=== PATIENT | male | born 1950 | race Hispanic/Latino ===

== ENCOUNTER 2017-05-08 19:24 | Emergency (ER) | payer MEDICARE ==
[2017-05-08 20:18] LABS: Basophils % (Auto) 0.4 % (0.0-1.8); Eosinophils % (Auto) 0.1 % (0.0-4.3); Hematocrit 45.5 % (35.5-45.6); Hemoglobin 15.2 gm/dl (11.8-15.2); Mean Corpuscular HGB Conc 33 % (32-34); Mean Corpuscular Hemoglobin 30 pg (28-32); Mean Corpuscular Volume 91 fl (84-94); Platelet Count 183 K/mm3 (140-440); Red Blood Count 5.01 M/mm3 (3.65-5.03); Red Cell Distribution Width 14.2 % (13.2-15.2); White Blood Count 13.4 K/mm3 (4.5-11.0)
[2017-05-08 20:28] LABS: INR 0.96 (0.87-1.13)
[2017-05-08 20:39] LABS: Alanine Aminotransferase 20 units/L (7-56); Albumin 4.6 g/dL (3.9-5); Albumin/Globulin Ratio 1.3 %; Alkaline Phosphatase 49 units/L (35-129); Anion Gap 20 mmol/L; BUN/Creatinine Ratio 16; Blood Urea Nitrogen 13 mg/dL (9-20); Calcium 9.7 mg/dL (8.4-10.2); Carbon Dioxide 27 mmol/L (22-30); Chloride 96.4 mmol/L (98-107); Glucose 93 mg/dL (75-100); Lipase 13 units/L (13-60); Potassium 4.1 mmol/L (3.6-5.0); Sodium 139 mmol/L (137-145); Total Protein 8.2 g/dL (6.3-8.2)
[2017-05-08] MEDS ORDERED: ZOFRAN IV ONE (21:55)
[2017-05-08] MEDS ORDERED: NACL 0.9% 1000 ML 2,000 ML IV ONE (21:55)
[2017-05-08] MEDS ORDERED: SUBLIMAZE IV ONE (21:56)
[2017-05-08] MEDS ORDERED: TYLENOL ONE (22:16)
[2017-05-08] MEDS ORDERED: TYLENOL PO ONE (22:16)
[2017-05-08] MEDS ORDERED: BENADRYL IV ONE (23:08)
--- NOTE | 2017-05-08 23:26 | Cat Scan Report ---
FINAL REPORT PROCEDURE: CT ABDOMEN PELVIS WO CON TECHNIQUE: Computerized axial tomography of the abdomen and pelvis was performed without intravenous contrast. This study is performed without intravascular contrast material and its sensitivity for abdominal and pelvic pathology, including neoplasms, inflammation, abscess, free fluid, thrombosis, arterial dissection and infarction, is reduced compared with a contrast enhanced study. HISTORY: Rt Lt lateral abd/flank pain, hx kidney stones COMPARISON: No prior studies are available for comparison. FINDINGS: Lower Lung rich: Small amount of dependent atelectasis is visualized. Calcifications are visualized in the coronary arteries indicating atherosclerotic disease. Upper Abdomen: The liver, the gallbladder, the adrenal glands, the pancreas and spleen are unremarkable. Kidneys, Ureters and Urinary bladder: There is no hydronephrosis. Nonobstructing calculi are visualized in the lower 3rd of the right kidney. The largest measures 2.3 x 1.2 centimeter. There is also a nonobstructing calculus in the midportion of the right kidney measuring 8.5 x 9.6 millimeters. Renal cortical cysts appear to be present on the right. A benign appearing thin calcification is visualized in the largest cyst on the right measuring 5.9 centimeters. There is indeterminate 2.9 x 2.5 millimeter nodular density projecting over the lower half of the renal pelvis of the right kidney. This may represent a peripelvic cyst although has lobulated borders and appears more dense than the adjacent cyst. I cannot exclude a solid nodule. Small renal cortical cysts appears to be present in the upper 3rd of the left kidney. Nonobstructing 3 millimeter calculus also visualized in the upper 3rd of the left kidney. Ureters are not distended. No ureteral calculi are visualized. Several bladder calculi are visualized. The largest measures 8.5 millimeters. Retroperitoneum: Atherosclerotic changes are seen in the abdominal aorta. No aneurysm is visualized. Nonspecific subcentimeter lymph nodes are seen in the retroperitoneum. No pathologically enlarged lymph nodes are identified. Bowel: No focal bowel loop abnormalities are seen. No evidence of bowel obstruction ascites or free intraperitoneal gas. The appendix is not clearly identified. Reproductive organs: There is nonspecific diffuse prostate enlargement. Other: No acute bony abnormalities are identified. IMPRESSION: Several urinary bladder calculi are visualized. Nonobstructing renal calculi visualized bilaterally greater on the right than the left. No hydronephrosis. Renal cortical cysts appear to be present bilaterally. There is atypical appearing slightly lobulated nodular density inferior aspect renal pelvis. This could represent a dense peripelvic cyst. A solid nodule cannot be excluded. Recommend renal ultrasound for further evaluation of the kidneys. There is nonspecific marked diffuse prostate enlargement..
[2017-05-08 23:33] LABS: Bacteria,Urine 1+ /HPF (Negative); Bilirubin,Urine NEG (Negative); Blood,Urine LG (Negative); Ketones,Urine NEG (Negative); Leukocyte Esterase,Urine LG (Negative); Mucus,Urine FEW /HPF; Nitrite,Urine NEG (Negative); Sperm,Urine 1+ /HPF (NP)
[2017-05-09] MEDS ORDERED: ZOSYN/NS 3.375GM/50ML 3.375 GM/50 ML BAG IV SCH
[2017-05-09] MEDS ORDERED: MOTRIN PO ONE (01:36)
--- NOTE | 2017-05-09 01:39 | Emergency Department Report ---
HPI - General Chief Complaint: Abdominal Pain Time Seen by Provider: 05/08/17 21:53 - HPI HPI: The patient is a 67 yo male whom presents for evaluation of abdominal pain. The patient has a history of recurrent renal stones and enlarged prostate. Patient complains of bilateral generalized abdominal pain since this morning, > 12 hours [employer], 10/10 in severity, cramping and sharp in quality, and exacerbated with attempts to urinate. He also reports associated dysuria, nausea, vomiting , decreased appetite, and decreased urinary flow. The patient denies headache, neck pain or stiffness, cough, chest pain, dyspnea, hematemesis, diarrhea, blood in the stool, testicular pain or swelling, rectal pain, or drainage or discharge from the rectum or penis. ED Past Medical Hx - Past Medical History Previous Medical History?: Yes Hx Hypertension: Yes Additional medical history: CAD, Enlarged Prostate, Central Tremors - Surgical History Past Surgical History?: Yes Hx Coronary Stent: Yes Additional Surgical History: Spine Surgery with Neuro deficit lower ext. Tonsils, Lrft Knee x2 - Social History Smoking Status: Never Smoker Substance Use Type: None - Medications Home Medications: Home Medications Medication Instructions Recorded Confirmed Last Taken Type Aspirin EC [Aspirin Enteric Coated 81 mg PO QDAY 05/08/17 05/08/17 05/07/17 History TAB] Cholecalciferol (Vitamin D3) 5,000 unit PO QDAY 05/08/17 05/08/17 05/07/17 History [Vitamin D3] Finasteride [Proscar] 5 mg PO QDAY 05/08/17 05/08/17 05/07/17 History Krill Oil 500 mg PO QDAY 05/08/17 05/08/17 05/07/17 History Metoprolol [Lopressor] 25 mg PO QDAY 05/08/17 05/08/17 05/07/17 History Primidone [Mysoline] 50 mg PO BID 05/08/17 05/08/17 05/07/17 History Rosuvastatin (Nf) [Crestor] 20 mg PO QHS 05/08/17 05/08/17 05/07/17 History Silodosin [Rapaflo] 8 mg PO QDAY 05/08/17 05/08/17 05/07/17 History Ubidecarenone [Coq-10] 400 mg PO QDAY 05/08/17 05/08/17 05/07/17 History Vitamin B Complex [Super B-50 1 each PO QDAY 05/08/17 05/08/17 05/07/17 History Complex] Vitamin E Acetate [Vitamin E] 400 unit PO QDAY 05/08/17 05/08/17 05/07/17 History HYDROcodone/ACETAMINOPHEN [[place] 1 each PO Q6HR #20 tablet 05/09/17 Unknown Rx 7.5-325 Tablet] Ibuprofen [Motrin] 800 mg PO Q8HR PRN #15 tablet 05/09/17 Unknown Rx Levofloxacin [Levaquin TAB] 500 mg PO QDAY #14 tablet 05/09/17 Unknown Rx Ondansetron [Zofran Odt] 4 mg PO Q8HR PRN #20 tab.rapdis 05/09/17 Unknown Rx ED Review of Systems ROS: Stated complaint: FEVER,ABD PAIN Other details as noted in HPI Constitutional: denies: fever ENT: denies: throat or neck pain Respiratory: denies: cough, shortness of breath Cardiovascular: denies: chest pain Endocrine: denies unexplained weight loss or gain Gastrointestinal: reports abdominal pain, nausea Genitourinary: reports dysuria Musculoskeletal: denies: leg swelling Skin: denies: rash Neurological: denies: headache Hematological/Lymphatic: denies: easy bleeding or easy bruising Psych: denies sadness or hopelessness Physical Exam - Physical Exam Vital Signs: Vital Signs 05/08/17 05/08/17 19:48 22:05 Temperature 99.3 F 101.1 F H Pulse Rate 113 H 109 H Respiratory 22 16 Rate Blood Pressure 131/79 116/69 [Right] O2 Sat by Pulse 97 97 Oximetry Physical Exam: General: well-nourished, well-developed, no acute distress Head: Normocephalic, atraumatic Eyes: normal sclera ENT: Mucous membranes are pale and dry Neck: No neck stiffness, no cervical adenopathy Respiratory: Breath sounds equal bilaterally, no wheezing, rales, or rhonchi Cardio: S1 and S2 present, no murmurs, rubs, gallops, capillary refill is delayed Abdomen: Normoactive bowel sounds, soft abdomen, RUQ, LUQ, and suprapubic tenderness to palpation present, no pain at McBurney's point, no rigidity, no guarding, no rebound tenderness Musc: No pitting edema Skin: No rash Neuro: no facial drooping, normal speech Psych: Normal affect ED Course Vital Signs 05/08/17 05/08/17 19:48 22:05 Temperature 99.3 F 101.1 F H Pulse Rate 113 H 109 H Respiratory 22 16 Rate Blood Pressure 131/79 116/69 [Right] O2 Sat by Pulse 97 97 Oximetry ED Medical Decision Making - Lab Data Result diagrams: 05/08/17 20:08 05/08/17 20:08 - Medical Decision Making The patient was seen and examined by myself. The patient is placed on a paper feeder and continuous pulse ox. On initial evaluation, the patient was found to be in no distress. Evaluation orders are placed. IV access is established and the patient is given 1 L normal saline fluid bolus, Tylenol for her elevated temperature, and Zofran for nausea, and IV fentanyl for pain. A Jacobson catheter is placed and the patient's bladder is appropriately drained. Lab results exhibited mild leukocytosis, WBC 13, mildly elevated LA, and elevated urinalysis WBC greater than 100, with positive leukocyte Estrace, consistent with acute urinary tract infection. Otherwise labs were non- concerning including nml renal function, LFTs, lipase. CT scan of the abdomen and pelvis exhibits bilateral renal stones and cysts, and is negative for ureterolithiasis, ureteral obstruction or dilation, or hydronephrosis. It also is negative for findings suggestive of bowel obstruction, free air, abscess, or appendicitis. The patient is given IV Zosyn for treatment of urinary tract infection or potential prostatitis. The patient was reevaluated and reported that his pain was resolved. The patient is found to have defervesced as of fever, temp now 98F, and resolution of tachycardia, heart rate now 70, and the patient is stable for discharge with outpatient follow-up. The patient is given follow-up and return instructions. The patient expressed understanding and agreed with the plan. The patient is discharged in stable condition. Critical care attestation.: If time is entered above; I have spent that time in minutes in the direct care of this critically ill patient, excluding procedure time. ED Disposition Clinical Impression: Acute lower UTI (urinary tract infection), Dehydration, mild, Nausea and vomiting in adult, Abdominal pain, acute, generalized, Kidney calculus, Acute urinary retention Disposition: DC-01 TO HOME OR SELFCARE Is pt being admited?: No Does the pt Need Aspirin: No Condition: Stable Instructions: Urinary Retention in Men (ED), Urinary Tract Infection in Men (ED ), Benign Prostatic Hypertrophy (ED), Acute Abdominal Pain (ED), Kidney Stones ( ED) Prescriptions: HYDROcodone/ACETAMINOPHEN [[place] 7.5-325 Tablet] 1 each PO Q6HR #20 tablet Ibuprofen [Motrin] 800 mg PO Q8HR PRN #15 tablet PRN Reason: Pain Levofloxacin [Levaquin TAB] 500 mg PO QDAY #14 tablet Ondansetron [Zofran Odt] 4 mg PO Q8HR PRN #20 tab.rapdis PRN Reason: Nausea And Vomiting Referrals: DALIA BURNS MD [Primary Care Provider] - 3-5 Days SUSANNA MACDONALD MD [Staff Physician] - 3-5 Days Time of Disposition: 01:36
[2017-05-09 01:52] VITALS: BP 94/50
--- NOTE | 2017-05-09 08:15 | XRay Report ---
AP chest x-ray. History: Cough and fever. Findings: The heart and pulmonary vessels are normal. The lungs are clear. There is no pleural fluid. Impression: No acute findings.
== END 2017-05-09 02:15 | disposition home or self-care (01) ==
LOC: ED 19:24
DX: N39.0 Urinary tract infection, site not specified (principal); E86.0 Dehydration; R11.2 Nausea with vomiting, unspecified; R33.9 Retention of urine, unspecified; N20.0 Calculus of kidney; I10 Essential (primary) hypertension
CPT/HCPCS: 36415; 51702; 71010; 74176; 80053; 81001; 82140; 82805; 83690; 85025; 85610; 93005; 93010; 96361; 96365; 96375; 99285; J1200; J2405; J2543; J3010; J7030